=== PATIENT | female | born 1945 | race Caucasian/White ===

== ENCOUNTER 2020-01-31 10:12 | Emergency (ER) | payer MEDICAID, MEDICARE ==
[2020-01-31 10:47] VITALS: BP 179/81; PULSE 81
--- NOTE | 2020-02-02 01:38 | EDM.PDOC ---
ED HPI GENERAL MEDICAL PROBLEM - General Chief Complaint: General Stated Complaint: NOSE BLEED Time Seen by Provider: 01/31/20 10:15 Source of Information: Reports: Patient History Limitations: Reports: No Limitations - History of Present Illness INITIAL COMMENTS - FREE TEXT/NARRATIVE: Lacey presents today for evaluation of epistaxis. She states that she overall has not had any issues with nosebleeds. She does not have any issues with easy bruising or bleeding with regard to any other known history of such. She states that an hour or so prior to arrival, she started to have a nosebleed. It seemed to persist despite conservative measures at home, and she presented to the ER for evaluation. By the time I was at the bedside, things seem to be improving, although she is wondering if she may need her nares cauterized. She denies any trauma or any other issues for today, and otherwise feels well. She understands that she was cauterized with silver nitrate in the past, and does not desire this to be done unless necessary. 0 Pain Score (Numeric/FACES): 0 - Related Data Allergies Allergy/AdvReac Type Severity Reaction Status Date / Time amoxicillin trihydrate Allergy Itching Verified 09/02/16 19:29 [From Augmentin] potassium clavulanate Allergy Itching Verified 09/02/16 19:29 [From Augmentin] Home Meds: Home Meds Etodolac [Lodine] 300 mg PO ASDIRECTED PRN 04/09/16 [History] Hydrochlorothiazide 25 mg PO DAILY 04/09/16 [History] Zafirlukast 10 mg PO BID PRN 04/09/16 [History] Past Medical History HEENT History: Reports: Allergic Rhinitis, Cataract Cardiovascular History: Reports: Hypertension Respiratory History: Reports: Asthma, COPD 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: Musculoskeletal History: Reports: Arthritis - Infectious Disease History Infectious Disease History: Reports: Mumps - Past Surgical History HEENT Surgical History: Reports: Cataract Surgery Cardiovascular Surgical History: Reports: None GI Surgical History: Reports: Colostomy Social & Family History - Family History Family Medical History: Noncontributory ED ROS GENERAL - Review of Systems Review Of Systems: See Below HEENT: Reports: Nosebleed Hematologic/Lymphatic: Reports: No Symptoms Free Text/Narrative/Comment: As per HPI otherwise no acute airway concerns ED EXAM, GENERAL - Physical Exam Exam: See Below Exam Limited By: No Limitations General Appearance: Alert, WD/WN, No Apparent Distress Eye Exam: Bilateral Eye: EOMI, PERRL Ears: Normal External Exam, Hearing Grossly Normal Nose: Normal Inspection, Other (Careful inspection reveals some adherent thrombus mainly of the medial septum of her right naris, there does appear to be a small amount of fresh bleeding from the very anterior portion, Rhino Rocket was gently inserted after lubrication with tranexamic acid, and balloon gently inflated. This was held in place for several minutes to help tamponade area, and upon gentle retrieval, actually had a pretty decent size clot removed. She felt a lot better after this. At that point she was requesting discharge.) Course - Vital Signs Text/Narrative:: Had a nice discussion with Lacey and staff about management, and Lacey expresses understanding, and was certainly welcome to return with any recurrent issues. She was otherwise discharged in good condition and encouraged to follow-up in the clinic to discuss management of her ongoing chronic medical concerns with her primary doctor at her convenience. Last Recorded V/S: Last Vital Signs Temp 98.2 F 01/31/20 10:45 Pulse 81 01/31/20 10:45 Resp 16 01/31/20 10:45 BP 179/81 H 01/31/20 10:45 Pulse Ox 99 01/31/20 10:45 - Orders/Labs/Meds Meds: Medications Discontinued Medications Generic Name Dose Route Start Last Admin Trade Name Freq PRN Reason Stop Dose Admin Tranexamic Acid 0 mg 01/31/20 10:40 01/31/20 12:12 Cyklokapron TOP 01/31/20 10:50 Not Given ONETIME ONE Departure - Departure Time of Disposition: 10:40 Disposition: Home, Self-Care 01 Clinical Impression: Epistaxis - Discharge Information Instructions: Nosebleed, Adult Referrals: PCP,None [Primary Care Provider] - Forms: ED Department Discharge Care Plan Goals: Avoid blowing nose. Return to hospital if nose bleed returns Sepsis Event Note - Evaluation Sepsis Screening Result: No Definite Risk
== END 2020-01-31 11:33 | disposition home or self-care (01) ==
LOC: LB.ED 10:12
DX: R04.0 Epistaxis (principal); I10 Essential (primary) hypertension; J44.9 Chronic obstructive pulmonary disease, unspecified; Z79.899 Other long term (current) drug therapy; Z88.1 Allergy status to other antibiotic agents
CPT/HCPCS: 30901; 30903; 99282; 99283-25

== ENCOUNTER 2021-06-19 10:50 | Emergency (ER) | payer MEDICARE ==
[2021-06-19] MEDS: Nitroglycerin 0.4 MG Tab.SL SL PRN ×2 (10:55→11:05)
[2021-06-19] MEDS ORDERED: Sodium Chloride 0.9% 10 ML Syringe FLUSH PRN (11:04)
[2021-06-19 11:31] VITALS: BP 186/70; PULSE 77
--- NOTE | 2021-06-19 11:43 | EDM.PDOC ---
ED HPI GENERAL MEDICAL PROBLEM - General Chief Complaint: Chest Pain Stated Complaint: CHEST PAIN Time Seen by Provider: 06/19/21 10:52 Source of Information: Reports: Patient, RN Notes Reviewed History Limitations: Reports: No Limitations - History of Present Illness INITIAL COMMENTS - FREE TEXT/NARRATIVE: This patient presents to the emergency department for evaluation of chest pain. She states she was sitting at her table having coffee this morning at about 830 when the pain began. She identifies that as up over her right breast. She denies any difficulty breathing with this and states she has had a little bit of congestion of late related to allergies. She has no nausea or vomiting. She was seen for similar concern in January 2021 and had a stress test at that time. This was essentially normal. She does rate the pain at about 8 out of 10. She denies other concerns or complaints. Onset: Today Onset Date: 06/19/21 Onset Time: 08:30 Duration: Heavy Location: Reports: Chest Quality: Reports: Dull Severity: Moderate chest Pain Score (Numeric/FACES): 5 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: Reports: Asthma, COPD 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: Musculoskeletal History: Reports: Arthritis - Infectious Disease History Infectious Disease History: Reports: Mumps - Past Surgical History HEENT Surgical History: Reports: Cataract Surgery Other HEENT Surgeries/Procedures: 2012 [place] Cardiovascular Surgical History: Reports: None GI Surgical History: Reports: Colostomy Social & Family History - Family History Family Medical History: No Pertinent Family History - Tobacco Use Tobacco Use Status *Q: Never Tobacco User ED ROS GENERAL - Review of Systems Review Of Systems: See Below Constitutional: Denies: Fever, Chills, Weakness HEENT: Reports: No Symptoms Respiratory: Denies: Shortness of Breath, Cough Cardiovascular: Reports: Chest Pain. Denies: Palpitations GI/Abdominal: Reports: No Symptoms Musculoskeletal: Reports: No Symptoms Skin: Reports: No Symptoms Neurological: Reports: No Symptoms ED EXAM, GENERAL - Physical Exam Exam: See Below Exam Limited By: No Limitations General Appearance: Alert, Anxious, Obese Eye Exam: Bilateral Eye: Normal Inspection, PERRL Ears: Normal External Exam Nose: Normal Inspection Throat/Mouth: Normal Inspection Head: Atraumatic, Normocephalic Neck: Normal Inspection Respiratory/Chest: Lungs Clear, Normal Breath Sounds, No Accessory Muscle Use, Chest Non-Tender. No: Respiratory Distress Cardiovascular: Regular Rate, Rhythm Extremities: Normal Inspection Neurological: Alert, Oriented Psychiatric: Normal Affect #1 Interpretation EKG Date: 06/19/21 Time: 10:58 Rhythm: NSR Rate (Beats/Min): 78 [place]ison: Normal P-Wave: Present QRS: Normal ST-T: Depressed (abnormality; T-wave inverted in V1-3) Comparison: Other: (Pt had t-wave inversion on previous EKG in V1 only) Course - Vital Signs Last Recorded V/S: Last Vital Signs Temp 37.4 C 06/19/21 10:50 Pulse 77 06/19/21 10:50 Resp 16 06/19/21 10:50 BP 186/70 H 06/19/21 11:05 Pulse Ox 97 06/19/21 10:50 - Orders/Labs/Meds Orders: Active Orders 24 hr Category Date Time Status Nitroglycerin [Nitrostat] Med 06/19/21 11:05 Active 0.4 mg SL Q5M PRN Sodium Chloride 0.9% [Saline Flush] Med 06/19/21 11:04 Active 10 ml FLUSH ASDIRECTED PRN Saline Lock Insert [OM.PC] Stat Oth 06/19/21 11:04 Ordered Medication Orders Nitroglycerin (Nitroglycerin 0.4 Mg Tab.Sl) 0.4 mg SL Q5M PRN PRN Reason: Chest Pain Last Admin: 06/19/21 11:05 Dose: 0.4 mg Documented by: Admin: 06/19/21 10:55 Dose: 0.4 mg Documented by: SHIRA Sodium Chloride (Sodium Chloride 0.9% 10 Ml Syringe) 10 ml FLUSH ASDIRECTED PRN PRN Reason: Keep Vein Open Labs: Laboratory Tests 06/19/21 06/19/21 06/19/21 Range/Units 11:04 11:04 15:00 WBC 13.0 H D (4.0-11.0) K/uL RBC 4.42 (3.80-5.80) M/uL Hgb 13.1 (11.5-16.5) g/dL Hct 39.7 (37.0-47.0) % MCV 90 (76-96) fL MCH 29.6 (27.0-32.0) pg MCHC 33.0 (31.0-35.0) g/dL RDW 12.9 (11.0-16.0) % Plt Count 204 (150-500) K/uL MPV 9.2 (6.0-10.0) fL Neut % (Auto) 80.2 H (45.0-70.0) % Lymph % (Auto) 11.5 L (20.0-40.0) % Kleberg % (Auto) 7.6 (3.0-10.0) % Eos % (Auto) 0.5 L (1.0-5.0) % Baso % (Auto) 0.2 (0.0-0.5) % Neut # (Auto) 10.43 H (2.00-7.50) K/uL Lymph # (Auto) 1.50 (1.50-4.00) K/uL Kleberg # (Auto) 0.99 H (0.20-0.80) K/uL Eos # (Auto) 0.06 (0.04-0.40) K/uL Baso # (Auto) 0.03 (0.02-0.10) K/uL Sodium 136 (136-145) mmol/L Potassium 4.5 (3.5-5.1) mmol/L Chloride 105 (98-107) mmol/L Carbon Dioxide 27.3 (21.0-32.0) mmol/L Anion Gap 8.2 (5.0-15.0) mmol/L BUN 24 D (8-26) mg/dL Creatinine 0.86 (0.55-1.02) mg/dL Est Cr Clr Drug Dosing 42.65 mL/min Estimated GFR (MDRD) > 60 (>60) MLS/MIN BUN/Creatinine Ratio 27.9 H (6-25) Glucose 131 H (74-100) mg/dL Calcium 9.2 (8.5-10.1) mg/dL Troponin I < 0.017 < 0.017 (0.000-0.060) ng/mL Meds: Medications Generic Name Dose Route Start Last Admin Trade Name Kyleq PRN Reason Stop Dose Admin Nitroglycerin 0.4 mg 06/19/21 11:05 06/19/21 11:05 Nitroglycerin 0.4 Mg Tab.Sl SL 0.4 mg Q5M PRN Administration Chest Pain Sodium Chloride 10 ml 06/19/21 11:04 Sodium Chloride 0.9% 10 Ml Syringe FLUSH ASDIRECTED PRN Keep Vein Open - Radiology Interpretation Free Text/Narrative:: Heart is mildly enlarged; probably accentuated by poor inspiration on the film in AP projection. The aorta demonstrates some calcification and is ectatic. - Re-Assessments/Exams Free Text/Narrative Re-Assessment/Exam: 06/19/21 12:16 This patient presents to the emergency department for evaluation of chest pain. Her chest pain did completely resolve with nitroglycerin given in the ED. Her chest x-ray does show a mild cardiomyopathy and EKG shows some T wave depression in V1 through 3. This is not necessarily a new finding for her as she did have some T wave depression on her EKG in January,. She is quite comfortable and does have a negative troponin at this time. She will be held in the ER and we will repeat her EKG and troponin at 1500. Free Text/Narrative Re-Assessment/Exam: 06/19/21 16:13 This patient presented to the emergency department for evaluation of chest pain. She had good relief from her chest pain with nitroglycerin. I did hold her in the hospital to repeat her troponin and her EKG, both of which were unchanged from first readings. Given her relief from the nitroglycerin and no changes in her EKG or troponin I suspect this is angina. I did give her a prescription for nitroglycerin, 0.4 mg sublingual tablets to be used at the onset of chest pain and explained to her that she could have up to 3 of these for a chest pain episode but did need to come to the emergency department if she needed to use them. Her has the same medication prescribed under the same circumstances and did understand how to use it and reinforced this with her. The differential diagnosis of chest pain is broad and includes life-threatening etiologies such as acute coronary syndrome, myocardial infarction, STEMI, pulmonary embolism, acute aortic dissection amongst others.. There was no evidence of these etiologies today in her visit. She should have close follow- up with her primary care provider and it was suggested she make an appointment in the clinic for a hospital recheck within about a week. The patient was pain- free and stable at the time of discharge. Departure - Departure Time of Disposition: 16:00 Disposition: Home, Self-Care 01 Condition: Good Clinical Impression: Chest pain Instructions: Nonspecific Chest Pain, Adult, [id number] Referrals: PCP,None [Primary Care Provider] - Forms: ED Department Discharge Additional Instructions: If you have chest pain again, use 1 nitroglycerin tablet under your tongue. You can repeat this 2 more times if the pain continues. If you have to use the medication, you must come into the emergency department. Sepsis Event Note (ED) - Focused Exam Vital Signs: Vital Signs Temp Pulse Resp BP BP Pulse Ox 06/19/21 11:05 186/70 H 06/19/21 10:55 186/70 H 06/19/21 10:50 37.4 C 77 16 186/70 H 97 - My Orders Last 24 Hours: My Active Orders 06/19/21 11:04 Sodium Chloride 0.9% [Saline Flush] 10 ml FLUSH ASDIRECTED PRN Saline Lock Insert [OM.PC] Stat 06/19/21 11:05 Nitroglycerin [Nitrostat] 0.4 mg SL Q5M PRN - Assessment/Plan Last 24 Hours: My Active Orders 06/19/21 11:04 Sodium Chloride 0.9% [Saline Flush] 10 ml FLUSH ASDIRECTED PRN Saline Lock Insert [OM.PC] Stat 06/19/21 11:05 Nitroglycerin [Nitrostat] 0.4 mg SL Q5M PRN
--- NOTE | 2021-06-19 12:08 | CR ---
DATE OF SERVICE: 06/19/2021 CLINICAL DATA: CHEST PAIN AP portable chest: Comparison is made to a prior exam dated 30 January 2021. The patient has taken a poor inspiration and there is breathing motion artifact. The heart is mildly enlarged. It is probably accentuated by the poor inspiration and AP projection. The aorta is calcified and ectatic. The lungs are clear. No areas of consolidation. No pneumothorax. No pleural effusions MTDD
== END 2021-06-19 16:05 | disposition home or self-care (01) ==
LOC: LB.ED 10:50
DX: R07.9 Chest pain, unspecified (principal); J44.9 Chronic obstructive pulmonary disease, unspecified; I10 Essential (primary) hypertension; Z88.0 Allergy status to penicillin; Z79.899 Other long term (current) drug therapy
CPT/HCPCS: 36415; 71045; 80048; 84484; 85025; 93005; 99285-25

== ENCOUNTER 2021-06-20 19:09 | Emergency (ER) | payer MEDICARE ==
--- NOTE | 2021-06-20 19:58 | EDM.PDOC ---
ED HPI GENERAL MEDICAL PROBLEM - General Chief Complaint: Lower Extremity Injury/Pain Stated Complaint: FALL Time Seen by Provider: 06/20/21 19:30 Source of Information: Reports: Patient, EMS, EMS Notes Reviewed, RN Notes Reviewed History Limitations: Reports: No Limitations - History of Present Illness INITIAL COMMENTS - FREE TEXT/NARRATIVE: This patient presents to the emergency department for evaluation of injury sustained in a fall. She states that she fell 1 step down while getting off the toilet. She has an abrasion to her right hand, abrasion to right elbow, mild r ight shoulder pain and right hip pain. She did not hit her head and had no loss of consciousness. She was seen in the ER yesterday for some chest pain that is most likely stable angina and states that she has not had chest pain today. She is able to recount all of the details of this incident and states that she not sure what made her fall but is aware of everything that happened. She denies c hest pain tonight, headache, nausea, vomiting, difficulty breathing. 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: Musculoskeletal History: Reports: Arthritis - Infectious Disease History Infectious Disease History: Reports: Mumps - Past Surgical History HEENT Surgical History: Reports: Cataract Surgery Other HEENT Surgeries/Procedures: 2012[place] Cardiovascular Surgical History: Reports: None GI Surgical History: Reports: Colostomy Social & Family History - Family History Family Medical History: No Pertinent Family History Review of Systems - Review of Systems Review Of Systems: See Below Constitutional: Reports: No Symptoms Eyes: Reports: No Symptoms Ears: Reports: No Symptoms Nose: Reports: No Symptoms Mouth/Throat: Reports: No Symptoms Respiratory: Reports: No Symptoms Cardiovascular: Reports: No Symptoms GI/Abdominal: Reports: No Symptoms Musculoskeletal: Reports: Joint Pain (Right hip) Skin: Reports: Lesions (Right hand, right elbow) ED EXAM, GENERAL - Physical Exam Exam: See Below Exam Limited By: No Limitations General Appearance: Alert, No Apparent Distress Eye Exam: Bilateral Eye: Normal Inspection, PERRL Ears: Normal External Exam Nose: Normal Inspection Head: Atraumatic, Normocephalic Neck: Normal Inspection, Supple, Non-Tender, Full Range of Motion Respiratory/Chest: No Respiratory Distress, Lungs Clear, Normal Breath Sounds Cardiovascular: Regular Rate, Rhythm Extremities: Normal Inspection, Other (There is no deformity, swelling or bruising of the hip or shoulder. Distal CMS is intact.) Neurological: Alert, Oriented Skin Exam: Warm, Dry, Wound/Incision (Quarter sized abrasion to right elbow; half-dollar sized skin tear to dorsum of her right hand.) Course - Orders/Labs/Meds Orders: Active Orders 24 hr Category Date Time Status Head wo Cont [CT] Stat Exams 06/20/21 20:04 Taken Head wo Cont [CT] Stat Exams 06/20/21 20:05 Taken Hip Min 2V or 3V w Pelvis Rt [CR] Stat Exams 06/20/21 19:23 Taken - Re-Assessments/Exams Free Text/Narrative Re-Assessment/Exam: 06/20/21 21:42 This patient presents to the ER via EMS following a fall. History and clinical findings are most consistent with a contusion of her hip. She did have a head CT because of her age and the mechanism of injury which was negative for acute findings. A broad differential was considered for her hip pain including strain, fracture,, nerve impingement or compromise, referred pain. Supportive outpatient management is indicated including rest and ice. A head to toe trauma exam was negative for acute findings including serious head, neck, chest, spingal, extremity, or abdominal injuries were noted. No further workup is needed at this time. The patient should follow up with her primary care provider as needed. Departure - Departure Time of Disposition: 20:15 Disposition: DC[facility] 05 Condition: Good Clinical Impression: Contusion of hip, right, Abrasions of multiple sites - Discharge Information *PRESCRIPTION DRUG MONITORING PROGRAM REVIEWED*: Not Applicable *COPY OF PRESCRIPTION DRUG MONITORING REPORT IN PATIENT NELLY: Not Applicable Instructions: Understanding Your Risk for Falls, Contusion, [id number] Referrals: PCP,None [Primary Care Provider] - Forms: ED Department Discharge Additional Instructions: Use tylenol for the pain. Keep the dressings on your hand and elbow in place. Recheck in the clinic in 2-3 days if you are not better, sooner if you are worse in any way. - My Orders Last 24 Hours: My Active Orders 06/20/21 19:23 Hip Min 2V or 3V w Pelvis Rt [CR] Stat 06/20/21 20:04 Head wo Cont [CT] Stat 06/20/21 20:05 Head wo Cont [CT] Stat - Assessment/Plan Last 24 Hours: My Active Orders 06/20/21 19:23 Hip Min 2V or 3V w Pelvis Rt [CR] Stat 06/20/21 20:04 Head wo Cont [CT] Stat 06/20/21 20:05 Head wo Cont [CT] Stat
[2021-06-21 06:09] VITALS: BP 193/76; PULSE 83
--- NOTE | 2021-06-21 07:49 | CR ---
DATE OF SERVICE: 06/20/21 CLINICAL DATA: trauma PELVIS AND RIGHT HIP: Comparison is made to a prior right hip exam performed 06/17/17. There are mild osteoarthritic changes of both hip joints. There are mild degenerative changes involving the SI joints and symphysis pubis. No acute fracture or dislocation. No lytic or blastic bone lesions. There are surgical clips in the right lower abdomen and left pelvis. [id number] [facility]
--- NOTE | 2021-06-21 07:55 | CT ---
DATE OF SERVICE: 06/20/21 CLINICAL DATA: trauma UNENHANCED BRAIN CT: Multislice acquisition through the brain without IV contrast was performed. No priors. There is mild atrophy. There are periventricular lucencies bilaterally consistent with small vessel ischemic change. There are lucencies in the basal ganglia bilaterally consistent with old lacunar infarcts. No masses or mass effect. No intracranial hemorrhage. No evidence of acute or subacute infarct. No osseous abnormalities. IMPRESSION: No acute intracranial abnormalities. [id number] [facility]
== END 2021-06-20 21:05 | disposition home or self-care (01) ==
LOC: LB.ED 19:09
DX: S70.01XA Contusion of right hip, initial encounter (principal); S50.311A Abrasion of right elbow, initial encounter; S60.511A Abrasion of right hand, initial encounter; I10 Essential (primary) hypertension; J44.9 Chronic obstructive pulmonary disease, unspecified; M19.90 Unspecified osteoarthritis, unspecified site; Z88.0 Allergy status to penicillin; Z79.899 Other long term (current) drug therapy; W18.11XA Fall from or off toilet without subsequent striking against object, initial encounter
CPT/HCPCS: 70450; 73502-RT; 99284-25; A0425; A0429

== ENCOUNTER 2021-06-21 01:38 | Inpatient (IN) | payer MEDICARE ==
[2021-06-21] MEDS ORDERED: Acetaminophen 325 MG Tab PO PRN (02:30)
[2021-06-21] MEDS: Ibuprofen 600 MG Tab PO PRN (07:52)
[2021-06-21] MEDS: Hydrochlorothiazide 25 MG Tab PO SCH (07:54)
--- NOTE | 2021-06-21 10:54 | PCM.HP.2 ---
H&P History of Present Illness - General Date of Service: 06/21/21 Admit Problem/Dx: Admission Diagnosis/Problem Admission Diagnosis/Problem Weakness Source of Information: Patient, EMS, EMS Notes Reviewed, RN Notes Reviewed History Limitations: Reports: No Limitations - History of Present Illness Initial Comments - Free Text/Narative: This patient presents to the hospital via EMS for weakness. She has been seen several times this week for various concerns. Her physical exams have been normal as well as her diagnostic testing. She was seen earlier this evening for a fall after which she had a head CT that was negative and plain films of her hip that were negative for acute findings. She was discharged to home after her 's expression that she could not be at home. He in fact has stated he would not take her home because he had to go to work. She had a fall trying to get into the house and EMS was called again and had assisted her. She then did walk into the house and went to bed. EMS was called again because she was "feeling tingly." She did not get out of bed or have any other falls. There were no other changes noted. She offered no other concerns. Prior to her discharge earlier in the evening, she was able to hold a bottle of water, insert a straw into a bottle, and assist with transfers. She was seen 2 days ago for chest pain and had a negative work-up for that. She was prescribed nitroglycerin to be used for stable angina. She states that she has not had any further chest pain and has not use any of the medication. Bilateral Upper Leg Pain Score (Numeric/FACES): 5 - Related Data Allergies/Adverse Reactions: Allergies Allergy/AdvReac Type Severity Reaction Status Date / Time amoxicillin trihydrate Allergy Itching Verified 06/20/21 22:46 [From Augmentin] potassium clavulanate Allergy Itching Verified 06/20/21 22:46 [From Augmentin] Home Medications: Home Meds Etodolac [Lodine] 300 mg PO ASDIRECTED PRN 04/09/16 [History] Hydrochlorothiazide 25 mg PO DAILY 04/09/16 [History] Zafirlukast 10 mg PO BID PRN 04/09/16 [History] Past Medical History HEENT History: Reports: Allergic Rhinitis, Cataract Cardiovascular History: Reports: Hypertension Respiratory History: Reports: Asthma, COPD 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: Musculoskeletal History: Reports: Arthritis - Infectious Disease History Infectious Disease History: Reports: Mumps - Past Surgical History HEENT Surgical History: Reports: Cataract Surgery Other HEENT Surgeries/Procedures: 2012 Cardiovascular Surgical History: Reports: None GI Surgical History: Reports: Colostomy Female Surgical History: Reports: None Social & Family History - Family History Family Medical History: No Pertinent Family History - Tobacco Use Tobacco Use Status *Q: Never Tobacco User Second Hand Smoke Exposure: No - Caffeine Use Caffeine Use: Reports: Coffee - Recreational Drug Use Recreational Drug Use: No H&P Review of Systems - Review of Systems: Review Of Systems: See Below General: Reports: Weakness. Denies: Fever, Chills, Decreased Appetite HEENT: Reports: Glasses. Denies: Dysphasia, Ear Pain, Eye Pain, Headaches Pulmonary: Denies: Shortness of Breath, Wheezing, Cough Cardiovascular: Denies: Chest Pain, Palpitations, Blood Pressure Problem Gastrointestinal: Denies: Abdominal Pain, Diarrhea, Decreased Appetite, Nausea, Vomiting Genitourinary: Denies: Dysuria, Incontinence Musculoskeletal: Reports: Shoulder Pain Skin: Reports: No Symptoms Neurological: Reports: Tingling (All over) Exam - Exam Exam: See Below - Vital Signs Vital Signs: Last Vital Signs Temp 37.1 C 06/21/21 09:12 Pulse 86 06/21/21 09:12 Resp 18 06/21/21 09:12 BP 162/75 H 06/21/21 09:12 Pulse Ox 96 06/21/21 09:12 Weight: 86.183 kg - Exam General: Alert, Oriented HEENT: PERRLA, Conjunctiva Clear, EACs Clear, EOMI, Hearing Intact, Mucosa Moist & Weed, Nares Patent, Normal Nasal Septum, Posterior Pharynx Clear, Pupils Equal, Pupils Reactive, TMs Clear, Glasses Neck: Supple, Full Range of Motion Lungs: Clear to Auscultation, Normal Respiratory Effort Cardiovascular: Regular Rate, Regular Rhythm GI/Abdominal Exam: Normal Bowel Sounds, Soft, Non-Tender, No Organomegaly, No Distention Back Exam: Normal Inspection Extremities: Normal Inspection, No Pedal Edema, Limited Range of Motion Skin: Warm, Dry, Rash (Flat, moist appearing erythematous rash to upper thigh skin folds.) Neuro Extensive - Mental Status: Alert, Oriented x3 Psychiatric: Alert, Normal Affect - Patient Data Lab Results Last 24 hrs: Laboratory Results - last 24 hr 06/21/21 06/21/21 06/21/21 Range/Units 08:50 08:50 Unknown WBC 14.7 H (4.0-11.0) K/uL RBC 4.42 (3.80-5.80) M/uL Hgb 13.1 (11.5-16.5) g/dL Hct 38.8 (37.0-47.0) % MCV 88 (76-96) fL MCH 29.6 (27.0-32.0) pg MCHC 33.8 (31.0-35.0) g/dL RDW 12.7 (11.0-16.0) % Plt Count 170 (150-500) K/uL MPV 9.6 (6.0-10.0) fL Neut % (Auto) 85.6 H (45.0-70.0) % Lymph % (Auto) 8.5 L (20.0-40.0) % [place] % (Auto) 5.5 (3.0-10.0) % Eos % (Auto) 0.1 L (1.0-5.0) % Baso % (Auto) 0.3 (0.0-0.5) % Neut # (Auto) 12.55 H (2.00-7.50) K/uL Lymph # (Auto) 1.25 L (1.50-4.00) K/uL [place] # (Auto) 0.81 H (0.20-0.80) K/uL Eos # (Auto) 0.01 L (0.04-0.40) K/uL Baso # (Auto) 0.04 (0.02-0.10) K/uL Sodium 134 L (136-145) mmol/L Potassium 3.9 (3.5-5.1) mmol/L Chloride 100 (98-107) mmol/L Carbon Dioxide 23.9 (21.0-32.0) mmol/L Anion Gap 14.0 (5.0-15.0) mmol/L BUN 19 D (8-26) mg/dL Creatinine 0.86 (0.55-1.02) mg/dL Est Cr Clr Drug Dosing 44.70 mL/min Estimated GFR (MDRD) > 60 (>60) MLS/MIN BUN/Creatinine Ratio 22.1 (6-25) Glucose 180 H D (74-100) mg/dL Calcium 9.3 (8.5-10.1) mg/dL Total Bilirubin 1.5 H (0.0-1.0) mg/dL AST 12 L (15-37) U/L ALT 23 (12-78) U/L Alkaline Phosphatase 68 (46-116) U/L Total Protein 7.5 (6.4-8.2) g/dL Albumin 3.1 L (3.4-5.0) g/dL Globulin 4.4 H (2.2-4.2) g/dL Albumin/Globulin Ratio 0.7 L (0.8-2.0) SARS-CoV-2 RNA (ESTEBAN) Negative (NEGATIVE) Result Diagrams: 06/21/21 08:50 06/21/21 08:50 Sepsis Event Note - Evaluation Sepsis Screening Result: No Definite Risk - Focused Exam Vital Signs: Vital Signs Temp Temp Pulse Resp BP Pulse Ox Pulse Ox 06/21/21 09:12 37.1 C 86 18 162/75 H 96 06/21/21 08:52 37.1 C 06/21/21 07:54 37.7 C 86 16 177/73 H 97 06/21/21 07:52 37.7 C 06/21/21 04:00 37.4 C 74 16 172/73 H 98 06/21/21 02:38 36.6 C 78 16 184/79 H 97 06/21/21 02:28 36.6 C 78 16 184/79 H 97 97 - Problem List (1) Weakness SNOMED Code(s): 32304008 ICD Code: R53.1 - WEAKNESS Status: Acute Priority: High Current Visit: Yes Problem List Initiated/Reviewed/Updated: Yes Orders Last 24hrs: Active Orders 24 hr Category Date Time Status Admission Diagnosis [ADT] Stat ADT 06/21/21 02:27 Active Patient Status [ADT] Routine ADT 06/21/21 02:30 Active Height and Weight [RC] .MO Care 06/21/21 02:30 Active May Shower [RC] ASDIRECTED Care 06/21/21 02:30 Active Oxygen Therapy [RC] PRN Care 06/21/21 02:30 Active Up With Assistance [RC] ASDIRECTED Care 06/21/21 02:30 Active VTE/DVT Education [RC] Per Unit Routine Care 06/21/21 02:30 Active Vital Signs [RC] 00,04,08,12,16,20 Care 06/21/21 02:30 Active OT Evaluation and Treatment [CONS] Routine Cons 06/21/21 02:30 Active PT Evaluation and Treatment [CONS] Routine Cons 06/21/21 02:30 Active Regular Diet [DIET] Diet 06/21/21 Breakfast Ordered Brain w Cont [MR] Routine Exams 06/21/21 09:56 Ordered CULTURE MRSA SURVEY [RM] Routine Lab 06/21/21 06:41 Received UA W/MICROSCOPIC [URIN] Stat Lab 06/21/21 02:30 Ordered Acetaminophen [TylenoL] Med 06/21/21 02:30 Active 650 mg PO Q4H PRN Ibuprofen [Motrin] Med 06/21/21 02:43 Active 600 mg PO Q6H PRN Montelukast [Singulair] Med 06/21/21 20:00 Active 10 mg PO BEDTIME Nystatin [Nystop] Med 06/21/21 10:45 Ordered 1 gm TOP BID hydroCHLOROthiazide Med 06/21/21 08:00 Active 25 mg PO DAILY Resuscitation Status Routine Resus Stat 06/21/21 02:28 Ordered Medication Orders Acetaminophen (Acetaminophen 325 Mg Tab) 650 mg PO Q4H PRN PRN Reason: Pain (Mild 1-3)/fever Hydrochlorothiazide (Hydrochlorothiazide 25 Mg Tab) 25 mg PO DAILY [facility] Last Admin: 06/21/21 07:54 Dose: 25 mg Documented by: KIMANI Ibuprofen (Ibuprofen 600 Mg Tab) 600 mg PO Q6H PRN PRN Reason: Pain (mild 1-3) Last Admin: 06/21/21 07:52 Dose: 600 mg Documented by: KIMANI Montelukast Sodium (Montelukast 10 Mg Tab) 10 mg PO BEDTIME [facility] Nystatin (Nystatin Topical Powder 15 Gm Bottle) 1 gm TOP BID [facility] Assessment/Plan Comment:: Weakness This patient is complaining of weakness. She has had a normal head CT however has had another fall since that was done. Plain films were negative and I have not found anything acute. She will have an MRI of her brain this morning to fur ther evaluate this change. She will be evaluated by both PT and OT. Candidal skin infection Patient will be given nystatin cream for the yeast. - Mortality Measure Prognosis:: Good
[2021-06-21] MEDS: Nystatin Topical Powder 15 GM Bottle TOP SCH ×2 (12:56→20:16)
[2021-06-21] MEDS: Sulfamethoxazole/Trimethoprim 800-160 MG Tab PO SCH ×2 (15:02→20:16)
--- NOTE | 2021-06-21 15:15 | MR ---
DATE OF SERVICE: 06/21/2021 CLINICAL DATA: Weakness Unenhanced and enhanced brain MRI: Routine MR protocol without and with IV contrast was performed. No priors. There is diffuse atrophy. There are numerous foci of bright signal intensity involving the periventricular white matter on the T2 and FLAIR images consistent with small vessel ischemic change. There are multiple foci of abnormal signal in the basal ganglia consistent with old lacunar infarcts. No masses. No mass effect. No evidence of intracranial hemorrhage. No evidence of acute or subacute infarct. No abnormal enhancement. There is fluid in the mastoid air cells bilaterally, left greater than right consistent with mastoid disease. The there is minimal mucosal thickening in the maxillary and ethmoid sinuses consistent with chronic sinusitis. Otherwise negative. Thank you for allowing us to participate in the care of your patient. AME
[2021-06-21] MEDS: Montelukast 10 MG Tab PO SCH (20:16)
[2021-06-22] MEDS: Sulfamethoxazole/Trimethoprim 800-160 MG Tab PO SCH ×2 (07:48→20:27)
[2021-06-22] MEDS: Nystatin Topical Powder 15 GM Bottle TOP SCH ×2 (07:49→20:27)
[2021-06-22] MEDS: Hydrochlorothiazide 25 MG Tab PO SCH (07:49)
--- NOTE | 2021-06-22 09:44 | PCM.PN ---
- General Info Date of Service: 06/22/21 Admission Dx/Problem (Free Text): Admission Diagnosis/Problem Admission Diagnosis/Problem Weakness Functional Status: Reports: Pain Controlled, Tolerating Diet, Urinating - Review of Systems General: Reports: Weakness. Denies: Fever HEENT: Reports: No Symptoms, Glasses. Denies: Headaches Pulmonary: Reports: No Symptoms Cardiovascular: Denies: Chest Pain Gastrointestinal: Denies: Abdominal Pain, Diarrhea, Nausea, Vomiting Musculoskeletal: Reports: No Symptoms Skin: Reports: No Symptoms Neurological: Reports: No Symptoms - Patient Data Vitals - Most Recent: Last Vital Signs Temp 37.8 C 06/22/21 08:00 Pulse 94 06/22/21 08:00 Resp 15 06/22/21 08:00 BP 181/89 H 06/22/21 08:00 Pulse Ox 96 06/22/21 08:00 Weight - Most Recent: 86.183 kg Lab Results Last 24 Hours: Laboratory Results - last 24 hr 06/21/21 Range/Units 12:08 Urine Color Yellow Urine Appearance Turbid (CLEAR) Urine pH 5.5 (5.0-8.0) Ur Specific [place] 1.015 (1.003-1.030) Urine Protein 30 H (NEGATIVE) mg/dL Urine Glucose (UA) Negative (NEGATIVE) mg/dL Urine Ketones Negative (NEGATIVE) mg/dL Urine Occult Blood Moderate H (NEGATIVE) Urine Nitrite Negative (NEGATIVE) Urine Bilirubin Negative (NEGATIVE) Urine Urobilinogen 0.2 (0.2-1.0) E.U./dL Ur Leukocyte Esterase Small H (NEGATIVE) Urine RBC 5-10 H /HPF Urine WBC 50-75 H /HPF Ur Epithelial Cells Few /HPF Urine Bacteria Many H /HPF Med Orders - Current: Current Medications Acetaminophen (Acetaminophen 325 Mg Tab) 650 mg PO Q4H PRN PRN Reason: Pain (Mild 1-3)/fever Hydrochlorothiazide (Hydrochlorothiazide 25 Mg Tab) 25 mg PO DAILY [facility] Last Admin: 06/22/21 07:49 Dose: 25 mg Documented by: Ibuprofen (Ibuprofen 600 Mg Tab) 600 mg PO Q6H PRN PRN Reason: Pain (mild 1-3) Last Admin: 06/21/21 07:52 Dose: 600 mg Documented by: Montelukast Sodium (Montelukast 10 Mg Tab) 10 mg PO BEDTIME [facility] Last Admin: 06/21/21 20:16 Dose: 10 mg Documented by: Nystatin (Nystatin Topical Powder 15 Gm Bottle) 1 gm TOP BID [facility] Last Admin: 06/22/21 07:49 Dose: 1 gm Documented by: Trimethoprim/Sulfamethoxazole (Sulfamethoxazole/Trimethoprim 800-160 Mg Tab) 1 tab PO BID [facility] Stop: 06/26/21 15:00 Last Admin: 06/22/21 07:48 Dose: 1 tab Documented by: - Exam General: Alert, Oriented HEENT: Pupils Equal, Pupils Reactive, EOMI, Mucous Membr. Moist/Kaycee Neck: Supple Lungs: Clear to Auscultation, Normal Respiratory Effort Cardiovascular: Regular Rate, Regular Rhythm Back Exam: Normal Inspection Extremities: Normal Inspection, No Pedal Edema, Normal Capillary Refill Skin: Warm, Dry Wound/Incisions: Healing Well Neurological: No New Focal Deficit Psy/Mental Status: Alert, Normal Affect - Patient Data Lab Results Last 24 hrs: Laboratory Results - last 24 hr 06/21/21 Range/Units 12:08 Urine Color Yellow Urine Appearance Turbid (CLEAR) Urine pH 5.5 (5.0-8.0) Ur Specific [place] 1.015 (1.003-1.030) Urine Protein 30 H (NEGATIVE) mg/dL Urine Glucose (UA) Negative (NEGATIVE) mg/dL Urine Ketones Negative (NEGATIVE) mg/dL Urine Occult Blood Moderate H (NEGATIVE) Urine Nitrite Negative (NEGATIVE) Urine Bilirubin Negative (NEGATIVE) Urine Urobilinogen 0.2 (0.2-1.0) E.U./dL Ur Leukocyte Esterase Small H (NEGATIVE) Urine RBC 5-10 H /HPF Urine WBC 50-75 H /HPF Ur Epithelial Cells Few /HPF Urine Bacteria Many H /HPF Result Diagrams: 06/21/21 08:50 06/21/21 08:50 Sepsis Event Note - Evaluation Sepsis Screening Result: No Definite Risk - Focused Exam Vital Signs: Vital Signs Temp Pulse Resp BP Pulse Ox 06/22/21 08:00 37.8 C 94 15 181/89 H 96 06/22/21 05:44 37.4 C 80 20 135/54 L 97 06/22/21 04:00 83 20 194/78 H 95 06/22/21 00:00 37.2 C 87 20 177/68 H 98 - Problem List & Annotations (1) Weakness SNOMED Code(s): 27954396 Code(s): R53.1 - WEAKNESS Status: Acute Priority: High Current Visit: Yes - Problem List Review Problem List Initiated/Reviewed/Updated: Yes - My Orders Last 24 Hours: My Active Orders 06/21/21 10:45 Nystatin [Nystop] 1 gm TOP BID 06/21/21 15:00 Sulfamethoxazole/Trimethoprim [Septra DS] 1 tab PO BID 06/21/21 20:00 Montelukast [Singulair] 10 mg PO BEDTIME - Assessment Assessment:: Weakness Will continue working with PT/OT on strength building. Lacey is aware that she will not be allowed to go back home until she is able to transfer self, walk with a walker, etc. She is cooperative with PT. UTI Urine was significant for a UTI yesterday. She was started on Bactrim for this. - Plan Plan:: Weakness This patient is complaining of weakness. She has had a normal head CT however has had another fall since that was done. Plain films were negative and I have not found anything acute. She will have an MRI of her brain this morning to further evaluate this change. She will be evaluated by both PT and OT. Candidal skin infection Patient will be given nystatin cream for the yeast.
[2021-06-22] MEDS: Montelukast 10 MG Tab PO SCH (20:26)
[2021-06-22] MEDS: Ibuprofen 600 MG Tab PO PRN (20:27)
[2021-06-23] MEDS: Hydrochlorothiazide 25 MG Tab PO SCH (07:41)
[2021-06-23] MEDS: Sulfamethoxazole/Trimethoprim 800-160 MG Tab PO SCH (07:41)
[2021-06-23] MEDS: Nystatin Topical Powder 15 GM Bottle TOP SCH ×2 (07:42→19:40)
--- NOTE | 2021-06-23 09:45 | PCM.PN ---
- General Info Date of Service: 06/23/21 Admission Dx/Problem (Free Text): Weakness leading to falls Subjective Update: Patient denies any pain, still complains of weakness with her right hand being weaker than her left. Patient states that she has a good appetite. Bowel movement normal. Urination without difficulty. Functional Status: Reports: Tolerating Diet, Other (Patient is a 2 person transfer, lack of muscle tone is making transfers difficult.) - Review of Systems General: Reports: Weakness HEENT: Reports: No Symptoms Pulmonary: Reports: No Symptoms Cardiovascular: Reports: No Symptoms Gastrointestinal: Reports: No Symptoms (Difficulty with her urine treated for UTI was she having any complaints no complaints) Genitourinary: Reports: Other (Odorous) Musculoskeletal: Reports: Other (Weakness in hands bilateral increased weakness in the right hand over the left.) Skin: Reports: No Symptoms (Yeast infection) Neurological: Reports: Weakness Psychiatric: Reports: Other (Per personnel who know patient outside of work patient is at baseline for cognitive abilities and speech) - Patient Data Vitals - Most Recent: Last Vital Signs Temp 97.5 F 06/23/21 04:00 Pulse 76 06/23/21 08:00 Resp 16 06/23/21 08:00 BP 156/87 H 06/23/21 08:00 Pulse Ox 96 06/23/21 08:00 Weight - Most Recent: 190 lb Alfred Results Last 24 Hours: Microbiology 06/21/21 06:41 MRSA Surveillance Culture - Final Nasal, Left NO MRSA ISOLATED Med Orders - Current: Current Medications Acetaminophen (Acetaminophen 325 Mg Tab) 650 mg PO Q4H PRN PRN Reason: Pain (Mild 1-3)/fever Hydrochlorothiazide (Hydrochlorothiazide 25 Mg Tab) 25 mg PO DAILY [facility] Last Admin: 06/23/21 07:41 Dose: 25 mg Documented by: Ibuprofen (Ibuprofen 600 Mg Tab) 600 mg PO Q6H PRN PRN Reason: Pain (mild 1-3) Last Admin: 06/22/21 20:27 Dose: 600 mg Documented by: Montelukast Sodium (Montelukast 10 Mg Tab) 10 mg PO BEDTIME [facility] Last Admin: 06/22/21 20:26 Dose: 10 mg Documented by: Nystatin (Nystatin Topical Powder 15 Gm Bottle) 1 gm TOP BID [facility] Last Admin: 06/23/21 07:42 Dose: 1 gm Documented by: Trimethoprim/Sulfamethoxazole (Sulfamethoxazole/Trimethoprim 800-160 Mg Tab) 1 tab PO BID [facility] Stop: 06/26/21 15:00 Last Admin: 06/23/21 07:41 Dose: 1 tab Documented by: - Exam General: Alert, Oriented, Cooperative, No Acute Distress HEENT: Other (Vision grossly intact, patient tracks movement as necessary) Neck: Trachea Midline, No JVD Lungs: Clear to Auscultation Cardiovascular: Regular Rate, No Murmurs GI/Abdominal Exam: Soft, Non-Tender, No Distention (Female) Exam: Other (Deferred patient was eating breakfast) Back Exam: Other (No pain upon palpation while patient was sitting in wheelchair) Extremities: Other (Patient has obvious weakness bilaterally increased on the right side) Skin: Warm, Dry, Intact Wound/Incisions: Healing Well, Other (Abrasion to forehead) Neurological: No New Focal Deficit, Other (Previously described weakness bilateral with increased weakness on the right side, patient lists to the right when sitting unassisted) Psy/Mental Status: Alert, Normal Affect, Normal Mood - Patient Data Result Diagrams: 06/21/21 08:50 06/21/21 08:50 Alfred Results Last 24 hrs: Microbiology 06/21/21 06:41 MRSA Surveillance Culture - Final Nasal, Left NO MRSA ISOLATED Sepsis Event Note - Evaluation Sepsis Screening Result: No Definite Risk - Focused Exam Vital Signs: Vital Signs Temp Pulse Resp BP Pulse Ox 06/23/21 08:00 76 16 156/87 H 96 06/23/21 04:00 97.5 F 75 18 169/77 H 97 06/23/21 00:00 97.5 F 72 18 154/67 H 97 - Problem List & Annotations (1) Weakness SNOMED Code(s): 91168434 Code(s): R53.1 - WEAKNESS Status: Acute Priority: High Current Visit: Yes - Problem List Review Problem List Initiated/Reviewed/Updated: Yes - Assessment Assessment:: Amira Will continue working with PT/OT on strength building. Lacey is aware that she will not be allowed to go back home until she is able to transfer self, walk wit h a walker, etc. She is cooperative with PT. UTI Urine was significant for a UTI yesterday. She was started on Bactrim for this. Above assessment still in place as of 06/23/2021. - Plan Plan:: Weakness This patient is complaining of weakness. She has had a normal head CT however has had another fall since that was done. Plain films were negative and I have not found anything acute. She will have an MRI of her brain this morning to further evaluate this change. She will be evaluated by both PT and OT. Candidal skin infection Patient will be given nystatin cream for the yeast. We will start an IV on patient and give a 500 cc normal saline bolus to address mild hyponatremia and weakness.
[2021-06-23] MEDS ORDERED: Sodium Chloride 0.9% 500 ML IV ONE (10:05)
[2021-06-23] MEDS ORDERED: Sodium Chloride 0.9% 1,000 ML IV SCH (15:15)
[2021-06-23] MEDS: Montelukast 10 MG Tab PO SCH (19:40)
[2021-06-23] MEDS ORDERED: Nitrofurantoin Macrocrystal 50 MG Cap PO SCH (20:00)
[2021-06-24] MEDS: Nystatin Topical Powder 15 GM Bottle TOP SCH (07:37)
[2021-06-24] MEDS: Hydrochlorothiazide 25 MG Tab PO SCH (07:37)
[2021-06-24] MEDS ORDERED: Docusate Sodium 100 MG Cap PO PRN (08:57)
--- NOTE | 2021-06-24 10:24 | PCM.DCSUM1 ---
Discharge Summary - Hospital Course Free Text/Narrative:: Patient was originally seen on 06/20/2021 for falls in the emergency room. Patient was discharged to home. Patient again ended up in the emergency room on 06/21/2021 after further falls and complaining of weakness in her hands. Patient was admitted to the hospital to work with OT/PT on strengthening her arms and working on her balance. Patient was simultaneously being treated for a UTI and yeast infection. Patient's white blood cell count continued to rise even though she was being treated by Bactrim for the UTI antibiotics were switched on 06/23/2021 to nitrofurantoin. After a day on nitrofurantoin patient's white blood cell counts started to respond in the right direction. In the morning of 06/24/2021 during change of incontinence apparel blood was noted leading the nurse to investigate source of the blood at which time a wound was found located to the right inferior area of the introitus wound was approximately 1-1/2 to 2 inches in diameter through the subcutaneous tissue, granulated tissue around the edge, tender to the touch, no purulent material. At this time we reach out to [facility] line to discuss the case with EPITAXIAL REACTOR TECHNICIAN, after discussing this case with EPITAXIAL REACTOR TECHNICIAN and the [facility] hospitalist they agreed to take the patient due to her re quiring a higher level of care. EPITAXIAL REACTOR TECHNICIAN Dillon BRYAN; Hospitalist Gema BRYAN. room #335 Diagnosis: Stroke: Yes Modified Hayes Scale: Mod.Sev.Disability ;Unable to Walk/Attend Bodily Needs W/O Assistance Modified Hayes Scale Score: 4 - Discharge Data Discharge Date: 06/24/21 Discharge Disposition: DC/Tfer to Acute Hospital 02 Condition: Good - Referral to Home Health Primary Care Physician: PCP None - Discharge Diagnosis/Problem(s) (1) Weakness SNOMED Code(s): 24340663 ICD Code: R53.1 - WEAKNESS Status: Acute Priority: High Current Visit: Yes (2) Open wound of genital labia SNOMED Code(s): 614269042 ICD Code: S31.40XA - UNSPECIFIED OPEN WOUND OF VAGINA AND VULVA, INIT ENCNTR Status: Acute Priority: High Current Visit: Yes Problem Details: 1-1/2 to 2 inch diameter full-thickness wound to the right inferior labia. Wound was found 06/24/2021 it is concerning for gangrenous fasciitis, or early Adama's. - Patient Summary/Data Consults: Consultations 06/21/21 02:30 OT Evaluation and Treatment [CONS] Routine Please Evaluate and Treat. OT Reason for Consult: Other (Type Response) Pending Discharge: Yes This query below is only for informational purposes and is not editable. Admission Diagnosis/Problem: Weakness PT Evaluation and Treatment [CONS] Routine Please Evaluate and Treat. PT Reason for Consult: Other (Type Response) Pending Discharge: Yes This query below is only for informational purposes and is not editable. Admission Diagnosis/Problem: Weakness - Discharge Plan Home Medications: Home Meds Etodolac [Lodine] 300 mg PO ASDIRECTED PRN 04/09/16 [History] Hydrochlorothiazide 25 mg PO DAILY 04/09/16 [History] Zafirlukast 10 mg PO BID PRN 04/09/16 [History] - Discharge Summary/Plan Comment DC Time >30 min.: No Total # of Minutes for Discharge Time: 10 - General Info Date of Service: 06/24/21 Admission Dx/Problem (Free Text: Weakness leading to falls Subjective Update: Patient denies any pain, still complains of weakness with her right hand being weaker than her left. Patient states that she has a good appetite. Bowel movement normal. Urination without difficulty. Functional Status: Reports: Pain Controlled, Tolerating Diet, New Symptoms (Labial wound). Denies: Ambulating - Review of Systems General: Reports: Weakness HEENT: Reports: No Symptoms Pulmonary: Reports: No Symptoms Cardiovascular: Reports: No Symptoms Gastrointestinal: Reports: No Symptoms, Constipation Genitourinary: Reports: Incontinence Musculoskeletal: Reports: No Symptoms Skin: Reports: No Symptoms ( ) Neurological: Reports: Difficulty Walking, Weakness, Other (Patient had weakness in hands bilaterally worse on the right the symptoms started prior to the patient's arrival to the ED 06-21-2021) Psychiatric: Reports: No Symptoms - Patient Data Vitals - Most Recent: Last Vital Signs Temp 99 F 06/24/21 07:41 Pulse 84 06/24/21 07:41 Resp 18 06/24/21 07:41 BP 178/84 H 06/24/21 07:41 Pulse Ox 96 06/24/21 07:41 Weight - Most Recent: 190 lb I&O - Last 24 hours: Intake & Output 06/23/21 06/24/21 06/24/21 22:59 06:59 14:59 Intake Total 1207 Balance 1207 Lab Results - Last 24 hrs: Laboratory Results - last 24 hr 06/23/21 06/23/21 06/23/21 Range/Units 13:30 13:30 13:30 WBC 16.3 H (4.0-11.0) K/uL RBC 4.33 (3.80-5.80) M/uL Hgb 12.9 (11.5-16.5) g/dL Hct 37.7 (37.0-47.0) % MCV 87 (76-96) fL MCH 29.8 (27.0-32.0) pg MCHC 34.2 (31.0-35.0) g/dL RDW 12.8 (11.0-16.0) % Plt Count 216 D (150-500) K/uL MPV 9.8 (6.0-10.0) fL Neut % (Auto) 86.2 H (45.0-70.0) % Lymph % (Auto) 7.1 L (20.0-40.0) % Bollinger % (Auto) 6.3 (3.0-10.0) % Eos % (Auto) 0.2 L (1.0-5.0) % Baso % (Auto) 0.2 (0.0-0.5) % Neut # (Auto) 14.01 H (2.00-7.50) K/uL Lymph # (Auto) 1.16 L (1.50-4.00) K/uL Bollinger # (Auto) 1.03 H (0.20-0.80) K/uL Eos # (Auto) 0.03 L (0.04-0.40) K/uL Baso # (Auto) 0.03 (0.02-0.10) K/uL Sodium 128 L (136-145) mmol/L Potassium 4.1 (3.5-5.1) mmol/L Chloride 95 L (98-107) mmol/L Carbon Dioxide 23.7 (21.0-32.0) mmol/L Anion Gap 13.4 (5.0-15.0) mmol/L BUN 27 H D (8-26) mg/dL Creatinine 1.06 H D (0.55-1.02) mg/dL Est Cr Clr Drug Dosing 36.27 mL/min Estimated GFR (MDRD) 51 L (>60) MLS/MIN BUN/Creatinine Ratio 25.5 H (6-25) Glucose 182 H (74-100) mg/dL Calcium 9.2 (8.5-10.1) mg/dL Phosphorus 3.0 (2.5-4.9) mg/dL Magnesium 2.1 (1.8-2.4) mg/dL Total Bilirubin 0.5 D (0.0-1.0) mg/dL AST 13 L (15-37) U/L ALT 21 (12-78) U/L Alkaline Phosphatase 76 (46-116) U/L Total Protein 7.4 (6.4-8.2) g/dL Albumin 2.7 L (3.4-5.0) g/dL Globulin 4.7 H (2.2-4.2) g/dL Albumin/Globulin Ratio 0.6 L (0.8-2.0) 06/24/21 06/24/21 Range/Units 08:55 08:55 WBC 14.2 H (4.0-11.0) K/uL RBC 4.52 (3.80-5.80) M/uL Hgb 13.4 (11.5-16.5) g/dL Hct 39.4 (37.0-47.0) % MCV 87 (76-96) fL MCH 29.6 (27.0-32.0) pg MCHC 34.0 (31.0-35.0) g/dL RDW 12.9 (11.0-16.0) % Plt Count 239 (150-500) K/uL MPV 9.5 (6.0-10.0) fL Neut % (Auto) (45.0-70.0) % Lymph % (Auto) (20.0-40.0) % Bollinger % (Auto) (3.0-10.0) % Eos % (Auto) (1.0-5.0) % Baso % (Auto) (0.0-0.5) % Neut # (Auto) (2.00-7.50) K/uL Lymph # (Auto) (1.50-4.00) K/uL Bollinger # (Auto) (0.20-0.80) K/uL Eos # (Auto) (0.04-0.40) K/uL Baso # (Auto) (0.02-0.10) K/uL Sodium 129 L (136-145) mmol/L Potassium 4.1 (3.5-5.1) mmol/L Chloride 97 L (98-107) mmol/L Carbon Dioxide 23.2 (21.0-32.0) mmol/L Anion Gap 12.9 (5.0-15.0) mmol/L BUN 18 D (8-26) mg/dL Creatinine 0.87 (0.55-1.02) mg/dL Est Cr Clr Drug Dosing 44.19 mL/min Estimated GFR (MDRD) > 60 (>60) MLS/MIN BUN/Creatinine Ratio 20.7 (6-25) Glucose 178 H (74-100) mg/dL Calcium 9.2 (8.5-10.1) mg/dL Phosphorus (2.5-4.9) mg/dL Magnesium (1.8-2.4) mg/dL Total Bilirubin (0.0-1.0) mg/dL AST (15-37) U/L ALT (12-78) U/L Alkaline Phosphatase (46-116) U/L Total Protein (6.4-8.2) g/dL Albumin (3.4-5.0) g/dL Globulin (2.2-4.2) g/dL Albumin/Globulin Ratio (0.8-2.0) Med Orders - Current: Current Medications Acetaminophen (Acetaminophen 325 Mg Tab) 650 mg PO Q4H PRN PRN Reason: Pain (Mild 1-3)/fever Last Admin: 06/24/21 00:24 Dose: 650 mg Documented by: Docusate Sodium (Docusate Sodium 100 Mg Cap) 100 mg PO BID PRN PRN Reason: Constipation Last Admin: 06/24/21 09:40 Dose: 100 mg Documented by: Hydrochlorothiazide (Hydrochlorothiazide 25 Mg Tab) 25 mg PO DAILY [facility] Last Admin: 06/24/21 07:37 Dose: 25 mg Documented by: Sodium Chloride (Normal Saline) 1,000 mls @ 100 mls/hr IV ASDIRECTED [facility] Last Admin: 06/23/21 15:30 Dose: 100 mls/hr Documented by: Montelukast Sodium (Montelukast 10 Mg Tab) 10 mg PO BEDTIME [facility] Last Admin: 06/23/21 19:40 Dose: 10 mg Documented by: Nitrofurantoin Macrocrystals (Nitrofurantoin Macrocrystal 50 Mg Cap) 50 mg PO BEDTIME [facility] Last Admin: 06/23/21 19:40 Dose: 50 mg Documented by: Nystatin (Nystatin Topical Powder 15 Gm Bottle) 1 gm TOP BID [facility] Last Admin: 06/24/21 07:37 Dose: 1 gm Documented by: Discontinued Medications Sodium Chloride (Normal Saline) 500 mls @ 500 mls/hr IV .BOLUS ONE Stop: 06/23/21 11:04 Last Admin: 06/23/21 10:10 Dose: 500 mls/hr Documented by: Ibuprofen (Ibuprofen 600 Mg Tab) 600 mg PO Q6H PRN PRN Reason: Pain (mild 1-3) Last Admin: 06/22/21 20:27 Dose: 600 mg Documented by: Trimethoprim/Sulfamethoxazole (Sulfamethoxazole/Trimethoprim 800-160 Mg Tab) 1 tab PO BID [facility] Stop: 06/26/21 15:00 Last Admin: 06/23/21 07:41 Dose: 1 tab Documented by: - Exam General: Reports: Alert, Oriented, Cooperative, Other (Patient cognition at baseline) HEENT: Reports: Pupils Equal Neck: Reports: Supple, Trachea Midline Lungs: Reports: Clear to Auscultation, Normal Respiratory Effort Cardiovascular: Reports: Regular Rate, Regular Rhythm GI/Abdominal Exam: Normal Bowel Sounds, Soft, Other ( constipated) (Female) Exam: Vaginal Lesions, Other (As described earlier already ordered to evaluate sits in there) Back Exam: Reports: Normal Inspection Extremities: Pedal Edema (Mild) Skin: Reports: Warm, Dry, Intact Wound/Incisions: Reports: Other (New wound found today 06/24/2021, 1.5 to 2 inch diameter full-thickness wound right inferior labia) Neurological: Reports: Other (Bilateral hand weakness more pronounced on the right, patient having difficulty ambulating to restroom patient is a two-person transfer) Psy/Mental Status: Reports: Alert, Normal Affect, Normal Mood *Q Meaningful Use (DIS) - VTE *Q VTE Mechanical Contraindications *Q: At Risk for Falls
[2021-06-24] MEDS ORDERED: Clindamycin Phosphate 600 MG in Dextrose 5% in Water 50 ML IV ONE ×2 (11:34)
[2021-06-24] MEDS ORDERED: Clindamycin Phosphate 900 MG/6 ML SDV ONE (11:34)
[2021-06-24] MEDS ORDERED: Clindamycin Phosphate 600 MG/4 ML SDV ONE (11:35)
[2021-06-24 12:16] VITALS: BP 158/72; PULSE 82
== END 2021-06-24 11:45 | DRG 948 ==
LOC: LB.ED 01:38 → UNDOADMIN 02:20 → LB.MS 02:20
PROVIDERS: ADMIT Nurse Practitioner; ATTEND Nurse Practitioner
DX: R53.1 Weakness (principal); N39.0 Urinary tract infection, site not specified; E87.1 Hypo-osmolality and hyponatremia; S31.40XA Unspecified open wound of vagina and vulva, initial encounter; J44.9 Chronic obstructive pulmonary disease, unspecified; M19.90 Unspecified osteoarthritis, unspecified site; B37.2 Candidiasis of skin and nail; Z20.822 Contact with and (suspected) exposure to COVID-19; Z88.0 Allergy status to penicillin; Z98.49 Cataract extraction status, unspecified eye; X58.XXXA Exposure to other specified factors, initial encounter
CPT/HCPCS: 36415; 70553; 80048; 80053; 81001; 83735; 84100; 85025; 85027; 87086; 97116-GP; 97161-GP; 97165-GO; A0425; A0429; A9270-GY; J3490; J7030; J7040; U0002